=== PATIENT | male | born 1970 | race Caucasian/White ===

== ENCOUNTER 2017-02-03 15:24 | Emergency (ER) | payer OTHER ==
[~2017-02-03] VITALS: Ht 177.8 cm; Wt 172.4 kg
[2017-02-03 15:52] LABS: ABSOLUTE BASOPHIL COUNT 0.1 /CUMM (0.0-0.2); ABSOLUTE EOSINOPHIL COUNT 0.1 /CUMM (0.0-0.7); ABSOLUTE LYMPH COUNT 1.4 /CUMM (1.2-3.4); ABSOLUTE MONOCYTE COUNT 0.9 /CUMM (0.10-0.60); BASOPHIL % 0.6 % (0.0-2.0); EOSINOPHIL % 1.3 % (0-5); GRANULOCYTE % 73.8 % (42.2-75.2); HEMATOCRIT 41.4 % (42-52); MEAN CORPUSCULAR HGB 26.9 PG (27.0-31.0); MEAN CORPUSCULAR HGB CONC 33.7 G/DL (33.0-37.0); MEAN CORPUSCULAR VOLUME 79.9 FL (80.0-94.0); MEAN PLATELET VOLUME 7.8 FL (7.4-10.4); PLATELET COUNT 213 /CUMM (130-400); RBC DISTRIBUTION WIDTH 14.3 % (11.5-14.5); RED BLOOD CELL CT 5.18 /CUMM (4.70-6.10); WHITE BLOOD CELL COUNT 9.5 /CUMM (4.8-10.8)
[2017-02-03] MEDS ORDERED: CHLORTHALIDONE25 M1 PO (16:11)
[2017-02-03] MEDS ORDERED: LISINOPRIL40 M1 PO (16:11)
[2017-02-03] MEDS ORDERED: COQ-1030 MG PO (16:12)
[2017-02-03] MEDS ORDERED: DAILY MULTIPLE1 EACH PO (16:12)
--- NOTE | 2017-02-03 16:17 | ED GENERAL ADULT ---
History of Present Illness General Chief Complaint: General Adult Stated Complaint: HIGH BLOOD PRESSURE Source: patient Exam Limitations: no limitations Vital Signs & Intake/Output Vital Signs & Intake/Output Vital Signs Date Time Temp Pulse Resp B/P B/P Pulse O2 O2 Flow FiO2 Mean Ox Delivery Rate 02/03 1832 97.0 101 18 160/100 96 Room Air 02/03 1611 101 20 178/114 96 Room Air 02/03 1529 96.9 107 16 177/117 97 Room Air Allergies Coded Allergies: No Known Allergies (02/03/17) Reconcile Medications Chlorthalidone 25 MG TABLET 0.5 TAB PO DAILY HTN (Reported) Lisinopril 40 MG TABLET 1 TAB PO DAILY HTN (Reported) Multivitamin (Daily Multiple Vitamin) 1 EACH TABLET 1 TAB PO DAILY SUPPLEMENT (Reported) Ubidecarenone (Coq-10) (Unknown Strength) CAPSULE (Unknown Dose) PO DAILY SUPPLEMENT (Reported) Triage Note: PT STATES HE CALLED HIS PCP BECAUSE HE HAS BILAT LOWER EXT. SWELLING THAT STARTED 1 WEEK AGO. PT STATES HE DIDN'T PAY ATTENTION TO IT UNTIL THAT PAST 2 DAYS. PT STATES HE WENT TO URGENT CARE AND HE WAS SENT TO ED FOR HIS HTN. PT IS TAKING LISINOPRIL AND ONE OTHER PILL FOR WATER. PT STATES HE HASN'T BEEN TAKING THEM FOR A WHILE STATES HE FORGOT TO TAKE THEM THIS WEEK. PT REPORTS HE STARTED TAKING THEM TODAY. Triage Nurses Notes Reviewed? yes Onset: Abrupt Duration: day(s): Timing: recent history HPI: 02/03/17 4:40 PM 46-year-old man presents to the emergency department for evaluation of high blood pressure. The patient states that he was at a walk-in today and his blood pressure was found to be significantly elevated. He denies any chest pain but does admit to some difficulty breathing when he walks distances. He also says that he doesn't sleep well at night and admits to nocturia. He denies any chest pain. The onset of the symptoms were abrupt, the duration has been several days , the severity significant; as his symptoms required him to come to the emergency department for care. He is also concerned about the fact that his lower legs have been tight and swollen Past History Travel History Traveled to [place] past 21 day No Medical History Any Pertinent Medical History? see below for history Cardiovascular: hypertension Surgical History Surgical History: non-contributory Psychosocial History What is your primary language [place] Tobacco Use: Never used ETOH Use: occasional use Illicit Drug Use: denies illicit drug use Family History Hx Contributory? No Review of Systems Review of Systems Constitutional: Denies: fever. EENTM: Reports: no symptoms. Respiratory: Denies: short of breath. Cardiovascular: Denies: chest pain. GI: Denies: abdominal pain. Genitourinary: Reports: no symptoms. Musculoskeletal: Reports: no symptoms. Skin: Reports: no symptoms. Neurological/Psychological: Reports: no symptoms. Hematologic/Endocrine: Reports: no symptoms. Physical Exam Physical Exam General Appearance: alert, awake, anxious, moderate distress Head: atraumatic, normal appearance Eyes: Bilateral: normal appearance, PERRL, EOMI. Ears, Nose, Throat: normal pharynx, normal ENT inspection Neck: normal inspection, supple, full range of motion Respiratory: chest non-tender, no respiratory distress Cardiovascular: regular rate/rhythm Peripheral Pulses: 4+ radial (R), 4+ radial (L) Gastrointestinal: soft, non-tender Back: decreased range of motion Extremities: pedal edema Neurologic/Psych: no motor/sensory deficits, awake, alert, oriented x 3 Skin: intact, normal color, warm/dry Core Measures ACS in differential dx? No CVA/TIA Diagnosis: No Severe Sepsis Present: No Septic Shock Present: No Progress Differential Diagnoses I considered the following diagnoses in my evaluation of the patient: [Essential hypertension, congestive heart failure, acute coronary syndrome, hypoproteinemia , DVT, pulmonary embolism] Plan of Care: Orders Procedure Date/time Status TROPONIN LEVEL 02/03 1805 Complete EKG 02/03 1805 Active D-DIMER 02/03 1717 Complete Add-on Test (ER Only) 02/03 1619 Active URINALYSIS 02/03 1619 Complete EKG 02/03 1619 Active TROPONIN LEVEL 02/03 1544 Complete COMPREHENSIVE METABOLIC PANEL 02/03 1532 Complete CBC WITHOUT DIFFERENTIAL 02/03 1532 Complete B-TYPE NATRIURETIC PEP (BNP) 02/03 1532 Complete Laboratory Tests 02/03/17 1827: Troponin I 0.04 02/03/17 1710: D-Dimer 202 02/03/17 1639: Urine Color YEL, Urine Clarity CLEAR, Urine pH 6.0, Ur Specific [place] 1.025, Urine Protein TRACE H, Urine Ketones NEG, Urine Nitrite NEG, Urine Bilirubin NEG, Urine Urobilinogen 0.2, Ur Leukocyte Esterase NEG, Ur Microscopic SEDIMENT EXAMINED, Urine WBC RARE, Urine Bacteria FEW H, Urine Hemoglobin NEG, Urine Glucose NEG 02/03/17 1544: Anion Gap 12, Estimated GFR > 60, BUN/Creatinine Ratio 22.2, Glucose 121 H, Calcium 9.2, Total Bilirubin 0.5, AST 38, ALT 74 H, Alkaline Phosphatase 85, Troponin I 0.03, [id number] Pept 303 H, Total Protein 7.0, Albumin 4.2, Globulin 2.8, Albumin/Globulin Ratio 1.5, CBC w Diff NO MAN DIFF REQ, RBC 5.18, MCV 79.9 L, MCH 26.9 L, RDW 14.3, MPV 7.8, Gran % 73.8, Lymphocytes % 14.5 L, Monocytes % 9.8 H, Eosinophils % 1.3, Basophils % 0.6, Absolute Granulocytes 7.0 H, Absolute Lymphocytes 1.4, Absolute Monocytes 0.9 H, Absolute Eosinophils 0.1, Absolute Basophils 0.1, PUBS MCHC 33.7 Initial ED EKG: sinus tachycardia, nonspecific ST-T wave abnormality, no significant change from the old tracing. Prior EKG: unchanged Departure Departure Disposition: STILL A PATIENT Condition: Stable Clinical Impression Primary Impression: Hypertension Referrals: MAREK CROOKS,MADISON Jacobsen (PCP/Family) Departure Forms: Customer Survey General Discharge Information Comments 02/03/17 The patient has 2 negative troponins and his EKG is unchanged. Chest x-ray is negative for CHF. His blood pressure has come down. He will be discharged. I will add Lasix to his regime. He will follow-up with his doctor this week. B/P: 160/100 BP Source+ Manually BP Position+ Sitting Mean Arterial Pressure 120 Pulse: 101 Temp: 97 Temp Source+ Tympanic Resp: 18 SPO2: 96 O2 By+ Room Air Amt O2+ Note Ft In CM Lbs Oz Kg Scale+ Critical Care Note Critical Care Note Critical Care Time: non-applicable
--- NOTE | 2017-02-03 16:45 | RADIOLOGY REPORT ---
EXAMINATION: CHEST 1 VIEW CLINICAL INFORMATION: Shortness of breath. COMPARISON: None. TECHNIQUE: An AP view of the chest is provided. FINDINGS: The cardiac silhouette is not enlarged. The mediastinal and hilar contours are unremarkable. There are neither pleural effusions nor pneumothoraces. There are no consolidations. The osseous structures are unremarkable. IMPRESSION: No evidence for acute disease.
[2017-02-03 18:32] VITALS: BP 160/100
[2017-02-03] MEDS ORDERED: LASIX20 M1 PO (19:27)
== END 2017-02-03 19:33 ==
LOC: ERH 15:24
PROVIDERS: Emergency Medicine
DX: I10 Essential (primary) hypertension (principal); M79.89 Other specified soft tissue disorders
CPT/HCPCS: 81001; 93005; 93010; 96374; J1940